=== PATIENT | male | born 1960 | race Native Hawaiian/Other Pacific Islander ===

== ENCOUNTER 2018-09-27 11:04 | Outpatient (CLI) | payer OTHER ==
[2018-09-27 11:32] LABS: PLATELET COUNT 353 K/uL (142-355)
[2018-09-27 11:49] LABS: POTASSIUM 3.7 mmol/L (3.6-5.2)
== END 2018-09-27 20:14 | disposition home or self-care (01) ==
LOC: LABW 11:04
PROVIDERS: Internal Medicine
DX: D64.9 Anemia, unspecified (principal); R05 Cough; R50.9 Fever, unspecified; Z96.649 Presence of unspecified artificial hip joint; R53.1 Weakness; R53.83 Other fatigue
CPT/HCPCS: 36415; 80053; 85027